=== PATIENT | female | born 1980 | race African-American/Black ===

== ENCOUNTER 2020-02-10 09:02 | Emergency (ER) | payer MEDICAID ==
[~2020-02-10] VITALS: Ht 157.5 cm; Wt 58.0 kg
[2020-02-10] MEDS ORDERED: KETOROLAC 60MG/2ML VIAL IM ONE (09:30)
[2020-02-10 10:29] VITALS: BP 122/67
== END 2020-02-10 11:30 | disposition home or self-care (01) ==
LOC: ER 11:03
DX: G43.909 Migraine, unspecified, not intractable, without status migrainosus (principal); J45.909 Unspecified asthma, uncomplicated
CPT/HCPCS: 81025; 96372; 99283; J1885

== ENCOUNTER 2020-02-11 06:03 | Emergency (ER) | payer MEDICAID ==
[~2020-02-11] VITALS: Ht 157.5 cm; Wt 57.5 kg
[2020-02-11] MEDS ORDERED: KETOROLAC 30MG/ML VIAL IV STA (08:12)
[2020-02-11] MEDS ORDERED: DIPHENHYDRAMINE 50MG/ML VIAL IV ONE (08:15)
[2020-02-11] MEDS ORDERED: METOCLOPRAMIDE HCL 10MG/2ML VIAL IV ONE (08:15)
[2020-02-11 10:08] VITALS: BP 120/81
== END 2020-02-11 10:10 | disposition home or self-care (01) ==
LOC: ER 06:03
DX: G43.909 Migraine, unspecified, not intractable, without status migrainosus (principal); R06.02 Shortness of breath; J45.909 Unspecified asthma, uncomplicated
CPT/HCPCS: 71045; 81025; 93005; 96374; 96375; 99284; J1200; J1885; J2765

== ENCOUNTER 2020-07-31 15:55 | Emergency (ER) | payer MEDICAID ==
[~2020-07-31] VITALS: Ht 172.7 cm; Wt 75.0 kg
[2020-07-31 16:05] VITALS: BP 133/85
[2020-07-31] MEDS ORDERED: ONDANSETRON 4MG ODT PO STA (16:58)
[2020-07-31] MEDS ORDERED: MAGNESIUM/ALUMINUM HYDROXIDE/SIMETHICONE 30ML UDC PO STA (16:58)
[2020-07-31] MEDS ORDERED: VISCOUS LIDOCAINE 2% 15 ML UDC MM ONE (17:15)
[2020-07-31] MEDS ORDERED: ONDANSETRON HCL 4MG/2ML INJ IV ONE ×2 (17:15→19:30)
[2020-07-31] MEDS ORDERED: SODIUM CHLORIDE 0.9% 1,000 ML IV ONE (17:15)
[2020-07-31 17:33] LABS: BASOPHILS % 0.6 % (0.0-2.0); EOSINOPHILS % 0.8 % (0.0-5.0); HEMATOCRIT. 32.8 % (36.0-48.0); HEMOGLOBIN. 10.1 g/dL (12.0-16.0); LYMPHOCYTES % 17.6 % (20.0-50.0); MEAN CORPUSCULAR HEMOGLOBIN 19.8 pg (28.0-32.0); MONOCYTES % 4.3 % (2.0-8.0); NEUTROPHILS % 76.7 % (40.0-76.0); PLATELET 366 x1000/uL (130-400); RED BLOOD CELL COUNT 5.12 mill/uL (4.2-5.4); RED CELL DISTRIBUTION WIDTH 18.4 % (11.6-14.6)
[2020-07-31 17:37] LABS: CHLORIDE 108 mEq/L (98-107)
[2020-07-31 18:02] LABS: HCG SCREEN NEGATIVE
[2020-07-31 18:12] LABS: PLATELET ESTIMATE NORMAL
[2020-07-31 19:23] LABS: CLARITY URINE CLEAR (CLEAR); COLOR URINE YELLOW (YELLOW); KETONES URINE 1+ (NEGATIVE); LEUKOCYTE ESTERASE URINE 1+ (NEGATIVE); NITRITE URINE NEGATIVE (NEGATIVE); OCCULT BLOOD URINE 3+ (NEGATIVE); PH URINE 8.5 (4.5-8.0); PROTEIN URINE NEGATIVE (NEGATIVE); SPECIFIC GRAVITY URINE 1.016 (1.005-1.030); UROBILINOGEN URINE 0.2 E.U./dL (0.2-1.0)
[2020-07-31 19:38] LABS: METHADONE URINE SCREEN NEGATIVE (NEGATIVE); OPIATES URINE SCREEN NEGATIVE (NEGATIVE)
[2020-07-31 19:39] LABS: *AMPHETAMINES SCREEN URINE NEGATIVE (NEGATIVE); *BARBITURATES SCREEN URINE NEGATIVE (NEGATIVE); *BENZODIAZEPINES SCREEN URINE NEGATIVE (NEGATIVE); *COCAINE SCREEN URINE NEGATIVE (NEGATIVE); PHENCYCLIDINE URINE SCREEN NEGATIVE (NEGATIVE)
[2020-07-31 19:49] LABS: CANNABINOID URINE SCREEN PRESUMTIVE POSITIVE (NEGATIVE)
[2020-07-31] MEDS ORDERED: ONDANSETRON HCL 4MG/2ML INJ IV NR (21:00)
== END 2020-07-31 22:19 | disposition home or self-care (01) ==
LOC: ER 15:55
DX: K29.70 Gastritis, unspecified, without bleeding (principal); N39.0 Urinary tract infection, site not specified; R03.0 Elevated blood-pressure reading, without diagnosis of hypertension; E87.6 Hypokalemia
CPT/HCPCS: 36415; 71045; 76705; 80053; 80305; 81003; 81025; 83690; 84484; 84703; 85025; 93005; 96361; 96374; 96376; 99285; J2405; J7030